=== PATIENT | female | born 1995 | race Caucasian/White ===

== ENCOUNTER 2018-11-11 05:02 | Inpatient (IN) | payer OTHER ==
[2018-11-11] MEDS ORDERED: MISOPROSTOL 200 MCG TAB PR ×2 (06:00→08:00)
[2018-11-11] MEDS ORDERED: METHYLERGONOVINE 0.2 MG INJ IM (06:00)
[2018-11-11] MEDS ORDERED: OXYTOCIN 30 UNITS/LR 500 ML IV (06:00)
[2018-11-11] MEDS ORDERED: CARBOPROST 250 MCG INJ IM (06:00)
[2018-11-11 06:38] LABS: ADD MAN DIFF? NO
[2018-11-11 06:50] LABS: WHITE BLOOD COUNT 8.4 10^3/ul (4.8-10.8)
[2018-11-11 06:50] LABS: BASOPHILS % 0.2 % (0.0-2.0); EOSINOPHILS # 0.1 10^3/ul (0.0-0.5); EOSINOPHILS % 0.6 % (0.0-7.0); HEMATOCRIT 33.7 % (37.0-47.0); HEMOGLOBIN 10.7 g/dl (12.0-16.0); LYMPHOCYTES # 1.7 10^3/ul (0.8-2.9); LYMPHOCYTES % 20.7 % (15.0-51.0); MEAN CORPUSCULAR HEMOGLOBIN 26.4 pg (29.0-33.0); MEAN CORPUSCULAR HGB CONC 31.8 g/dl (32.0-37.0); MEAN PLATELET VOLUME 10.4 fl (7.4-10.4); MONOCYTE # 0.5 10^3/ul (0.3-0.9); MONOCYTES % 6.2 % (0.0-11.0); NEUTROPHILS % 71.6 % (39.0-77.0); PLATELET COUNT 305 10^3/UL (140-415); RED BLOOD COUNT 4.06 10^6/ul (4.20-5.40); RED CELL DISTRIBUTION WIDTH 15.7 % (11.5-14.5)
[2018-11-11] MEDS: LACTATED RINGER'S 1,000 ML IV ×4 (06:59→23:11)
[2018-11-11] MEDS ORDERED: OXYTOCIN 30 UNITS/LR 500 ML BAG IV (07:00)
[2018-11-11 07:09] LABS: INR 0.88; PARTIAL THROMBOPLASTIN TIME 25.1 Sec (23.0-35.0); PT RATIO 0.9
[2018-11-11] MEDS ORDERED: ONDANSETRON 4 MG INJ (07:22)
[2018-11-11] MEDS ORDERED: CITRIC ACID/NA CITRATE 30 ML CUP (07:22)
[2018-11-11] MEDS: CITRIC ACID/NA CITRATE 30 ML CUP PO (07:24)
[2018-11-11] MEDS: ONDANSETRON 4 MG INJ IV (07:25)
[2018-11-11 07:55] LABS: HEPATITIS B SURFACE ANTIGEN NEGATIVE (NEGATIVE)
[2018-11-11] MEDS ORDERED: PHENYLephrine (100 MCG/ML) 10ML SYG (07:56)
[2018-11-11] MEDS ORDERED: OXYTOCIN 10 UNIT INJ (07:56)
[2018-11-11] MEDS ORDERED: morphine SULFATE/PF (10 MG/10 ML) INJ (07:56)
[2018-11-11] MEDS ORDERED: NA PHOSPHATE/BIPHOS 133 ML ENEMA PR (08:00)
[2018-11-11] MEDS ORDERED: KETOROLAC 30 MG INJ (08:19)
[2018-11-11] MEDS ORDERED: METOCLOPRAMIDE 10 MG INJ (08:19)
[2018-11-11] MEDS ORDERED: DEXAMETHASONE 4 MG/ML 1 ML INJ (08:19)
[2018-11-11] MEDS ORDERED: MEPERIDINE 100 MG INJ (08:49)
[2018-11-11] MEDS ORDERED: EPHEDrine SULFATE 50 MG/5 ML SYG IV (09:00)
[2018-11-11] MEDS ORDERED: DIPHENHYDRAMINE 50 MG INJ IV (09:00)
[2018-11-11] MEDS: SENNA/DOCUSATE NA (8.6MG/50MG) TAB PO ×2 (09:00→21:56)
[2018-11-11] MEDS ORDERED: NALOXONE (0.4 MG/ML) INJ IV (09:00)
[2018-11-11] MEDS ORDERED: ACETAMINOPHEN 500 MG TAB PO (09:00)
[2018-11-11] MEDS ORDERED: NALBUPHINE HCL (10 MG/1 ML) INJ IV (09:00)
[2018-11-11] MEDS ORDERED: morphine 2 MG INJ IV ×2 (09:00)
[2018-11-11] MEDS ORDERED: ONDANSETRON 4 MG INJ IV (09:00)
[2018-11-11] MEDS ORDERED: HYDROmorphONE 0.5 MG/0.5 ML SYG IV ×2 (09:00)
[2018-11-11] MEDS ORDERED: HYDROCODONE/APAP (5/325) TAB PO (09:00)
[2018-11-11] MEDS: OXYTOCIN 30 UNITS/LR 500 ML IV ×2 (09:53→15:34)
[2018-11-11] MEDS: CEFAZOLIN 3 GM in DEXTROSE 5% 100 ML IV (10:15)
[2018-11-11] MEDS: IBUPROFEN 600 MG TAB PO ×2 (12:00→15:32)
[2018-11-11 20:02] LABS: RAPID PLASMA REAGIN NONREACTIVE (NR)
[2018-11-12] MEDS: LACTATED RINGER'S 1,000 ML IV (05:32)
[2018-11-12] MEDS: KETOROLAC 30 MG INJ IV (05:53)
[2018-11-12] MEDS: IBUPROFEN 600 MG TAB PO ×5 (06:00→23:47)
[2018-11-12 07:41] LABS: ADD MAN DIFF? NO
[2018-11-12 07:51] LABS: WHITE BLOOD COUNT 9.1 10^3/ul (4.8-10.8)
[2018-11-12 07:51] LABS: BASOPHILS % 0.3 % (0.0-2.0); EOSINOPHILS % 0.4 % (0.0-7.0); HEMATOCRIT 29.3 % (37.0-47.0); HEMOGLOBIN 9.3 g/dl (12.0-16.0); LYMPHOCYTES # 2.1 10^3/ul (0.8-2.9); LYMPHOCYTES % 23.5 % (15.0-51.0); MEAN CORPUSCULAR HEMOGLOBIN 26.2 pg (29.0-33.0); MEAN CORPUSCULAR HGB CONC 31.7 g/dl (32.0-37.0); MEAN CORPUSCULAR VOLUME 82.5 fl (82.0-101.0); MEAN PLATELET VOLUME 10.2 fl (7.4-10.4); MONOCYTE # 0.6 10^3/ul (0.3-0.9); MONOCYTES % 6.7 % (0.0-11.0); NEUTROPHIL # 6.2 10^3/ul (1.6-7.5); NEUTROPHILS % 68.5 % (39.0-77.0); PLATELET COUNT 265 10^3/UL (140-415); RED BLOOD COUNT 3.55 10^6/ul (4.20-5.40); RED CELL DISTRIBUTION WIDTH 15.5 % (11.5-14.5)
[2018-11-12] MEDS: SENNA/DOCUSATE NA (8.6MG/50MG) TAB PO ×2 (08:48→21:59)
[2018-11-12] MEDS: OXYCODONE/ACETAMINOPHEN (5/325) TAB PO (22:05)
[2018-11-12] MEDS: LANOLIN HPA 1 PKT TOP (22:05)
[2018-11-13] MEDS: IBUPROFEN 600 MG TAB PO ×4 (05:44→23:42)
[2018-11-13] MEDS: SENNA/DOCUSATE NA (8.6MG/50MG) TAB PO ×2 (08:58→21:04)
[2018-11-13] MEDS: OXYCODONE/ACETAMINOPHEN (5/325) TAB PO ×2 (10:26→21:08)
[2018-11-13] MEDS: POLYSACCHARIDE IRON COMPLEX CAP PO (21:04)
[2018-11-13] MEDS: DOCUSATE SODIUM 100 MG CAP PO (21:04)
[2018-11-14] MEDS: OXYCODONE/ACETAMINOPHEN (5/325) TAB PO (05:03)
[2018-11-14] MEDS: IBUPROFEN 600 MG TAB PO ×3 (05:26→18:01)
[2018-11-14] MEDS ORDERED: DIPHTH/TET/ACEL PERTUSS (ADULT) 0.5 ML VIAL IM* (09:00)
[2018-11-14] MEDS: DOCUSATE SODIUM 100 MG CAP PO (09:06)
[2018-11-14] MEDS: SENNA/DOCUSATE NA (8.6MG/50MG) TAB PO (09:06)
[2018-11-14] MEDS: POLYSACCHARIDE IRON COMPLEX CAP PO (09:06)
[2018-11-14] MEDS: MEASLES,MUMPS,RUBELLA VACCINE INJ SC* (18:02)
== END 2018-11-14 19:09 | disposition home or self-care (01) | DRG 785 ==
LOC: L-D 05:02 → PP1 12:21
PROVIDERS: Specialist
PROC: 10D00Z1 Extraction of Products of Conception, Low, Open Approach (ICD-10-PCS; principal; 2018-11-11 07:30)
PROC: 0UB70ZZ Excision of Bilateral Fallopian Tubes, Open Approach (ICD-10-PCS; 2018-11-11 07:30)
DX: O34.219 Maternal care for unspecified type scar from previous cesarean delivery (principal); O99.214 Obesity complicating childbirth; E66.01 Morbid (severe) obesity due to excess calories; O90.81 Anemia of the puerperium; Z3A.39 39 weeks gestation of pregnancy; Z37.0 Single live birth; Z30.2 Encounter for sterilization; Z23 Encounter for immunization
CPT/HCPCS: 85025; 85610; 85730; 86592; 86850; 86900; 86901; 87340; 88302; 99464